=== PATIENT | female | born 1950 | race Caucasian/White ===

== ENCOUNTER 2018-11-23 13:48 | Emergency (ER) | payer MEDICARE, MEDICAID ==
[2018-11-23] MEDS ORDERED: Bicillin CR 1.2 MILL UNITS/2 ML SYRINGE ONE (14:23)
== END 2018-11-23 14:29 | disposition home or self-care (01) ==
LOC: BURERS 13:48
DX: J02.9 Acute pharyngitis, unspecified (principal)
CPT/HCPCS: 96372; J0558